=== PATIENT | female | born 1975 | race Caucasian/White ===

== ENCOUNTER 2019-10-07 08:35 | Outpatient (CLI) | payer BC ==
--- NOTE | 2019-10-07 09:40 | CT ---
CT abdomen and pelvis with IV and oral contrast HISTORY: R10.33. K30. Abdominal pain and bloating. FINDINGS: Minimal nonspecific atelectasis at the lung bases. Tiny cysts within the right liver lobe a nd left kidney. No evidence of bowel obstruction or inflammation. Appendix has normal appearance. Urinary bladder is unremarkable. Uterus and ovaries have a normal CT appearance. No enhancing tissue or mass outside of the uterus. No free fluid or free air. Degenerative changes throughout the lumbar spine. Central canal stenosis most pronounced at the L4-5 level. There is gas within a left posterolateral disc herniation at the lumbosacral junction. IMPRESSION: No acute intra-abdominal abnormalities are demonstrated. No CT evidence of appendicitis. Degenerative changes lower lumbar spine including central canal stenosis. 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 Clinical correlation regarding the left S1 dermatome is required.
== END 2019-10-07 08:36 | disposition home or self-care (01) ==
LOC: SCSCT 08:35
PROVIDERS: ATTEND Internal Medicine
DX: K30 Functional dyspepsia (principal); R10.33 Periumbilical pain; M47.816 Spondylosis without myelopathy or radiculopathy, lumbar region; M48.061 Spinal stenosis, lumbar region without neurogenic claudication; M51.27 Other intervertebral disc displacement, lumbosacral region
CPT/HCPCS: 74177